=== PATIENT | female | born 2000 | race Caucasian/White ===

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

== ENCOUNTER 2019-09-13 18:55 | Observation (INO) ==
[2019-09-13 20:01] LABS: Basophils % 0.6 %; Eosinophils # 0.1 K/mcL (0.0-0.6); Eosinophils % 1.4 %; Hematocrit 44.1 % (35.3-44.9); Hemoglobin 13.9 g/dL (11.5-15.4); Immature Granulocytes % 0.4 % (0-4); Lymphocytes # 1.9 K/mcL (0.6-4.6); Lymphocytes % 25.9 %; Mean Corpuscular HGB Conc 31.5 g/dL (31.6-35.5); Mean Corpuscular Hemoglobin 27.5 pg (28.0-33.3); Mean Corpuscular Volume 87.2 fL (83.0-100.0); Mean Platelet Volume 10.2 fL (9.4-12.4); Monocytes # 0.5 K/mcL (0.0-1.3); Monocytes % 7.2 %; Neutrophils # 4.6 K/mcL (1.6-8.9); Platelet Count 302 K/mcL (140-400); Red Blood Count 5.06 M/mcL (3.82-4.97); Red Cell Distribution Width 13.8 % (11.5-14.5); Segmented Neutrophils % 64.5 %; White Blood Count 7.1 K/mcL (4.3-11.1)
[2019-09-13 20:02] LABS: Bilirubin,Urine Negative (Negative); Blood,Urine Negative (Negative); Clarity,Urine Clear (Clear); Color,Urine Yellow (Yellow); Glucose,Urine (UA) Normal (Normal); Ketones,Urine Negative (Negative); Leukocyte Esterase,Urine Negative (Negative); Nitrite,Urine Negative (Negative); Protein,Urine Negative (Neg-Trace); Specific Gravity,Urine 1.023 (1.010-1.025); Urobilinogen,Urine Normal (Normal)
[2019-09-13 20:11] LABS: Amphetamine Screen,Urine Negative ng/mL (Cutoff=1000); Barbiturate Screen,Urine Negative ng/mL (Cutoff=200); Benzodiazepines Screen,Urine Negative ng/mL (Cutoff=200); Cannabinoid Screen,Urine Negative ng/mL (Cutoff = 50); Cocaine Screen,Urine Negative ng/mL (Cutoff= 300); Opiate Screen,Urine Negative ng/mL (Cutoff=300); Phencyclidine Screen,Urine Negative ng/mL (Cutoff=25)
[2019-09-13 20:21] LABS: Acetaminophen < 10 mcg/mL (10-20); BUN/Creatinine Ratio 22 (6-26); Blood Urea Nitrogen 11 mg/dL (6-20); Carbon Dioxide 24 mEq/L (23-29); Chloride 108 mEq/L (98-107); Ethanol < 10 mg/dL (Less than 10); Glucose 94 mg/dL (70-105); Osmolality,Calculated 289 (280-300); Potassium 3.6 mEq/L (3.5-5.1); Salicylate < 2.5 mg/dL (15.0-30.0); Sodium 140 mEq/L (136-145); eGFR For African Americans > 60 (> 60); eGFR For Non-African Americans > 60 (> 60)
[2019-09-13] MEDS ORDERED: *HR* LORazepam 1 MG TABLET PO ONE (21:13)
[2019-09-13] MEDS ORDERED: haloperidoL 5 MG TABLET PO ONE (21:13)
[2019-09-13] MEDS ORDERED: hydrOXYzine pamoate 25 MG CAPSULE PO PRN (22:17)
[2019-09-13] MEDS ORDERED: *HR* LORazepam 2 MG/ML VIAL IM PRN (22:17)
[2019-09-13] MEDS ORDERED: Haloperidol Lactate 5 MG/ML VIAL IM PRN (22:17)
[2019-09-13] MEDS ORDERED: haloperidoL 5 MG TABLET PO PRN (22:17)
[2019-09-13] MEDS ORDERED: *HR* LORazepam 1 MG TABLET PO PRN (22:17)
[2019-09-13] MEDS ORDERED: Mag Hydrox/Al Hydrox/Simeth 30 ML UDC PO PRN (22:17)
[2019-09-13] MEDS ORDERED: MOM Conc 10 ML UD.LIQ PO PRN (22:17)
[2019-09-13] MEDS ORDERED: traZODone 50 MG TABLET PO PRN (22:17)
[2019-09-13] MEDS ORDERED: Ibuprofen 400 MG TABLET PO PRN (22:22)
[2019-09-14 12:10] VITALS: BP 115/73
== END 2019-09-14 15:30 | disposition home or self-care (01) ==
LOC: EMEROOARM 18:55 → 1ANU 18:55
PROVIDERS: ADMIT Psychiatry & Neurology Psychiatry; ATTEND Psychiatry & Neurology Psychiatry